=== PATIENT | female | born 2000 | race Caucasian/White ===

== ENCOUNTER 2021-05-19 19:12 | Emergency (ER) | payer SELFPAY ==
[~2021-05-19] VITALS: Ht 162.6 cm; Wt 68.0 kg
[2021-05-19 19:12] VITALS: BP_SYST 127
--- NOTE | 2021-05-19 19:21 | NUR ---
BROUGHT IN BY [facility], PLACED IN BED #4 AND TRIAGED. REPORT GIVEN TO [employer]UR[facility]
--- NOTE | 2021-05-19 19:23 | NUR ---
Patient BIB by BLS/EMS from home. C/O Psychiatric x today. Per reported, patient had argument with her family, Patient stopped talking. Patient resents with non-verbal , vss.
--- NOTE | 2021-05-19 19:40 | NUR ---
ER at bedside examining patient.
--- NOTE | 2021-05-19 20:01 | NUR ---
Spoke with family Mother. (Phone number [phone])- Per family reported, Patient was drinking Vodka and had argument with her family then she did zoning out. They tried to wake her up and spoke with her, no responses. They decided to call 911. She lives in [place] , not with family. They had no idea-she had been seen psychiatrist. She was depression lately.
--- NOTE | 2021-05-19 20:12 | NUR ---
Patient woke up, started talking, A/O,X4, patient said, patient had sleep paralysis. "It was happening before 4 years ago, I took Advil this morning, drinking Vodka and very tried."
[2021-05-19 20:27] VITALS: BP_SYST 127
--- NOTE | 2021-05-19 20:27 | NUR ---
Patient given written and verbal discharge instructions and verbalizes understanding by Dr. Stark. ER MD discussed with patient the results and treatment provided. Patient in stable condition. ID arm band removed. IV catheter removed intact and dressing applied, no active bleeding. No Rx given. Patient educated on pain management and to follow up with PMD. Pain Scale 0/10. Opportunity for questions provided and answered. Medication side effect fact sheet provided.
== END 2021-05-19 20:27 | disposition home or self-care (01) ==
LOC: SED 19:12
DX: R46.89 Other symptoms and signs involving appearance and behavior (principal)
CPT/HCPCS: 99283